=== PATIENT | female | born 1945 | race Caucasian/White ===

== ENCOUNTER 2018-04-08 15:35 | Emergency (ER) | payer BC ==
[~2018-04-08] VITALS: Ht 157.5 cm; Wt 71.8 kg
[2018-04-08 15:45] VITALS: BP 150/82
--- NOTE | 2018-04-08 15:54 | NUR ---
A 72 YO F BIB SELF WITH MULTIPLE BUG BITES ON L ARM AND BILAT LEGS X 1.5 MONTHS. PT WITH SWELLING, FIRM, REDNESS, WARM TO TOUCH. AT EACH BITE, PT ADMINT TO SCRATCHING TILL BREAKING SKIN.PT. DENIES ANY N/V/D. DENIES ANY FEVER OR CHILLS. RR EVEN AND UNLABORED. NO DRAINAGE NOTED TO BUG BITES. DENIES CP, DENIES SOB. WILL CONTINUE TO MONITOR. ER MADE AWARE. SAFETY PRECAUTIONS IMPLEMENTED.
--- NOTE | 2018-04-08 15:57 | NUR ---
DR. RENNER AT BEDSIDE AT THIS TIME.
[2018-04-08 16:14] VITALS: BP 148/80
--- NOTE | 2018-04-08 16:14 | NUR ---
Patient discharged with v/s stable. Written and verbal after care instructions given and explained. Patient alert, oriented and verbalized understanding of instructions. Ambulatory with steady gait. All questions addressed prior to discharge. ID band removed. Patient advised to follow up with PMD. Rx of KEFLEX,BENADRYL, PRENISONE given. Patient educated on indication of medication including possible reaction and side effects. Opportunity to ask questions provided and answered.
== END 2018-04-08 16:14 | disposition home or self-care (01) ==
LOC: MED 15:35
DX: L03.116 Cellulitis of left lower limb (principal)
CPT/HCPCS: 99283